=== PATIENT | female | born 1950 | race Caucasian/White ===

== ENCOUNTER 2021-02-15 06:48 | Day surgery (SDC) | payer MEDICARE, SELFPAY ==
[~2021-02-15] VITALS: Ht 152.4 cm; Wt 74.8 kg
[2021-02-15] MEDS ORDERED: fentaNYL citrate 0.05 MG/ML VIAL ONE (08:46)
[2021-02-15] MEDS ORDERED: MIDAZOLAM 5 MG/5 ML VIAL ONE (08:47)
[2021-02-15] MEDS ORDERED: MIDAZOLAM 2 MG/2 ML VIAL IVP ONE (09:55)
== END 2021-02-15 10:15 | disposition home or self-care (01) ==
LOC: MLB 06:48 → MMU 06:49 → MLB 10:15
PROVIDERS: ATTEND Internal Medicine Gastroenterology
DX: K21.9 Gastro-esophageal reflux disease without esophagitis (principal); E78.00 Pure hypercholesterolemia, unspecified; E66.9 Obesity, unspecified; E03.9 Hypothyroidism, unspecified; Z79.899 Other long term (current) drug therapy; Z68.32 Body mass index [BMI] 32.0-32.9, adult; Z20.828 Contact with and (suspected) exposure to other viral communicable diseases
CPT/HCPCS: 43235; J2250; J7030; U0003; J3010